=== PATIENT | female | born 1965 | race Caucasian/White ===

== ENCOUNTER → 2018-07-23 | Emergency (ER) | payer OTHER ==
[~2018-07-23] VITALS: Ht 170.2 cm; Wt 90.7 kg
[~2018-07-23] MED LIST: ALBUTEROL FS 2.5 MG/3 ML VIAL.NEB NEB ONE; ALBUTEROL FS 2.5 MG/3 ML VIAL.NEB ONE; IPRATROPIUM NEB FS 0.5 MG/2.5 ML AMPUL.NEB NEB ONE; IPRATROPIUM NEB FS 0.5 MG/2.5 ML AMPUL.NEB ONE; predniSONE 20 MG TABLET ONE; predniSONE 20 MG TABLET PO ONE
--- NOTE | 2018-07-23 06:53 | NUR ---
TO ER BED 1 C/O SOB X1 MONTH PROGRESSIVLEY GETTING WORSE. PT AA/OX4. "I HAVE BEEN TAKING BRONCHITIS FOR THE PAST TWO WEEKS." PT SPEAKING FULL SENTENCES WITH A NON PRODUCTIVE COUGH. DENIES ANY PAIN. WHEEZING NOTED IN ALL LOBES. NO N/V/D. SKIN PINK, WARM, DRY. AMBULATED TO HOSPITAL BED WITH STABLE GAIT. 93% ROOM AIR. PLACED ON 4 LPM VIA NC. NAD. ALL OTHER VSS. STABLE CONDITION. WILL CONTINUE TO MONITOR.
--- NOTE | 2018-07-23 07:05 | NUR ---
PT SITTING AT EDGE OF BED HOLDING NEBULIZED BREATHING TREATMENT WITH FAMILY AT BEDSIDE. PT TOLERATING TX WELL.
--- NOTE | 2018-07-23 07:18 | NUR ---
REPORT GIVEN TO ON COMING SHIFT WEI CATES. PT STABLE CONDITION. NAD. VSS.
--- NOTE | 2018-07-23 07:30 | NUR ---
For discharge-ACI given Home ambulatory in stable condition
[2018-07-23 08:38] VITALS: BP 112/84
== END | disposition home or self-care (01) ==
LOC: ER 06:42
DX: J45.901 Unspecified asthma with (acute) exacerbation (principal); F17.200 Nicotine dependence, unspecified, uncomplicated
CPT/HCPCS: 94640 ×2; 99284; 99406; A4606; J7512; Z7610

== ENCOUNTER 2019-08-19 21:09 | Emergency (ER) | payer OTHER ==
[~2019-08-19] VITALS: Ht 172.7 cm; Wt 97.5 kg
--- NOTE | 2019-08-19 21:19 | NUR ---
PT BIB DAUGHTER. AAOX4. PT C/O SOB AND CONGESTION X 2 DAYS. -PAIN. BILATERAL WHEEZING HEARD UPON ASSESSMENT. PER PATIENT "I GET SOB WHEN I WALK." PT STATES SHE USED HER INHALER ON THE WAY TO THE ED BUT IT DID NOT HELP. PT PLACED ON MONITOR AND PULSE OX. VSS. NO ACUTE DISTRESS NOTED. AWAITING MD FOR EVAL.
--- NOTE | 2019-08-19 21:26 | NUR ---
BUSINESS ANALYTICS DIRECTOR AT BEDSIDE
[2019-08-19] MEDS ORDERED: predniSONE 20 MG TABLET PO ONE (21:30)
[2019-08-19] MEDS ORDERED: predniSONE 20 MG TABLET ONE (21:30)
[2019-08-19] MEDS ORDERED: ALBUTEROL FS 2.5 MG/3 ML VIAL.NEB CONTNEB ONE (21:30)
[2019-08-19] MEDS ORDERED: IPRATROPIUM NEB FS 0.5 MG/2.5 ML AMPUL.NEB NEB ONE (21:30)
[2019-08-19 21:40] LABS: BASOPHILS # (AUTO) 0.1 /CMM (0.0-0.2); BASOPHILS % (AUTO) 1.4 % (0.0-2.0); EOSINOPHILS % (AUTO) 7.5 % (0.0-6.0); HEMATOCRIT 44 % (33-45); HEMOGLOBIN 14.7 g/dL (11.5-14.8); LYMPHOCYTES # (AUTO) 2.5 /CMM (0.8-4.8); LYMPHOCYTES % (AUTO) 38.7 % (20.0-44.0); MEAN CORPUSCULAR HGB CONC 34 g/dl (31.0-36.0); MEAN CORPUSCULAR VOLUME 96 fL (82-100); MONOCYTES # (AUTO) 0.6 /CMM (0.1-1.30); NEUTROPHILS # (AUTO) 2.8 /CMM (1.8-8.9); NEUTROPHILS % (AUTO) 43.4 % (43.0-81.0); PLATELET COUNT (AUTO) 253 /CMM (150-450); RED BLOOD CELL COUNT(AUTO) 4.56 MIL/uL (4.0-5.2); WHITE BLOOD COUNT (AUTO) 6.4 K/uL (4.3-11.0)
[2019-08-19 21:49] LABS: CALCIUM, SERUM 9.4 mg/dL (8.5-10.1); CREATININE 0.7 mg/dL (0.6-1.3); POTASSIUM 3.7 mmol/L (3.5-5.1)
--- NOTE | 2019-08-19 21:53 | NUR ---
RADIOLOGY AT BEDSIDE FOR XRAY
[2019-08-19] MEDS ORDERED: ALBUTEROL FS 2.5 MG/3 ML VIAL.NEB ONE (21:57)
[2019-08-19] MEDS ORDERED: IPRATROPIUM NEB FS 0.5 MG/2.5 ML AMPUL.NEB ONE (21:58)
--- NOTE | 2019-08-19 22:00 | NUR ---
RT AT BEDSIDE FOR BREATHING TREATMENT
[2019-08-19 23:27] VITALS: BP 136/78
--- NOTE | 2019-08-19 23:27 | NUR ---
Patient discharged to home in stable condition. Written and verbal after care instructions given. Patient verbalizes understanding of instruction. PT ambulatory with a steady gait.
== END 2019-08-19 23:27 | disposition home or self-care (01) ==
LOC: ER 21:14
DX: J44.1 Chronic obstructive pulmonary disease with (acute) exacerbation (principal); F17.200 Nicotine dependence, unspecified, uncomplicated
CPT/HCPCS: 36415; 71045; 80048; 83880; 85025; 94644; 99285; 99406; J7512